=== PATIENT | male | born 1950 | race Caucasian/White ===

== ENCOUNTER 2017-05-04 09:47 | Inpatient (IN) | payer MEDICARE, OTHER ==
[~2017-05-04] VITALS: Ht 188 cm; Wt 77.1 kg
[2017-05-04 10:47] VITALS: BP 170/69
[2017-05-04] MEDS ORDERED: ACETAMINOPHEN 325 MG TABLET. PO PRN (11:30)
[2017-05-04] MEDS ORDERED: ONDANSETRON PF 4 MG/2 ML VIAL. IV PRN (11:30)
[2017-05-04] MEDS ORDERED: MORPHINE SULFATE 4 MG/ML DISP.SYRIN. IV PRN (11:30)
[2017-05-04] MEDS ORDERED: oxyCODONE IR 5 MG TABLET PO PRN (11:30)
[2017-05-04] MEDS ORDERED: KETOROLAC 15 MG/ML VIAL. IV PRN (11:30)
--- NOTE | 2017-05-04 14:39 | PDOC1 ---
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 known to Octaviano Beaulieu, I did speak with Lazarus Beaulieu earlier today and pt has been cancer free for yrs. ON CT some 8 mm liver lesion too could not say if hemangioma or mets, Pt denies changes in PO intake or weight loss PT appears non toxic and pain meds working GS has seen pt, advised nGT but he opted to wait and see He would rather avoid further sx and do conservative tx PLan of care dw too, agreeable LAbs: wbc 15 K 4.4 creat 1.0 rest of BMP ok, afebrile, VS ok Past Medical History Cardiovascular: HTN Heme/Onc: Cancer Past Surgical History Past Surgical History: Other (colon sx) Family History Family History: No Significant Social History Smoke: <1 pack per day ALCOHOL: occassional Drugs: None Current Medications Current Medications Current Medications Ondansetron HCl (Zofran) 4 mg PRN Q6HRS PRN IV NAUSEA/VOMITING; Start at 11:30 Oxycodone HCl (Roxicodone) 5 mg PRN Q3HRS PRN PO BREAKTHROUGH PAIN; Start 06/08 at 11:30 Morphine Sulfate 2 mg PRN Q2HR PRN IV PAIN Last administered on 05/04/17 12: 21; Start 05/04/17 at 11:30 Ketorolac Tromethamine (Toradol) 15 mg PRN Q6HRS PRN IV PAIN Last administered on 05/04/17 12:21; Start 05/04/17 at 11:30; Stop 05/09/17 at 11:29 Acetaminophen (Tylenol) 650 mg PRN Q6HRS PRN PO Headaches, Temp > 101.5F; Start 05/04/17 at 11:30 Potassium Chloride/Sodium Chloride 1,000 ml @ 100 mls/hr Q10H IV ; Start 05/04 at 13:15 Allergies Allergies: Coded Allergies: No Known Drug Allergies (Unverified , 05/04/17) ROS Review of System as per HPI, otherwise 14 pt negative Physical Exam General: Alert, Oriented X3, Cooperative, No acute distress HEENT: Atraumatic, PERRLA, EOMI, Mucous membr. moist/pink Lungs: Clear to auscultation, Normal air movement Heart: S1S2, RRR, no thrills, no rubs, no gallops, no murmurs Cardiovascular: S1, S2 Abdomen: Soft, Other (tympanitic, mildly tender on moderate palp, hypoactive BS , no guarding) Extremities: No clubbing, No cyanosis, No edema, Normal pulses, No tenderness/ swelling Skin: No rashes, No breakdown, No significant lesion Neuro: Normal gait, Normal speech, Strength at 5/5 X4 ext, Normal tone, Sensation intact, Cranial nerves 3-12 NL, Reflexes 2+ Psych/Mental Status: Mental status NL, Mood NL Vitals Vitals Vital Signs Date Time Temp Pulse Resp B/P (MAP) Pulse Ox O2 Delivery O2 Flow Rate FiO2 05/04/17 12:21 16 Room Air VTE Prophylaxis Ordered VTE Prophylaxis Devices: Yes VTE Pharmacological Prophylaxi: Yes Assessment/Plan Assessment/Plan 1. SBO with transition point 2. Hx colon CA stage 4? with 8 mmliver lesion, hemangiona vs met - hasbeen cancer free for yrs per Octaviano Beaulieu 3. 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 HTN, dyslipidemia, smoker, occ etoh 5.ANemia of malignancy 6. LEukocytosis, likely reactibe 7,.Mild ot mod PCM PLAN: NPO IVF GS and heme onc consults PAin meds HE would rather go conservative route and avoid any abd surgeries if possible Dw and him LAbs tmr OSMAN ESCOBEDO MD May 04, 2017 14:39
[2017-05-04 15:00] VITALS: BP 165/70
[2017-05-04] MEDS: POTASSIUM CL 20MEQ-0.45% NACL 1,000 ML IV SCH (15:51)
[2017-05-04] MEDS: ENOXAPARIN 40 MG/0.4 ML SYRINGE. SQ SCH (16:00)
[2017-05-04] MEDS ORDERED: LISI-334 PO (16:13)
[2017-05-04] MEDS ORDERED: testosterone (16:13)
[2017-05-04] MEDS ORDERED: PROAIR HFA8.5 GM INH (16:13)
[2017-05-04] MEDS ORDERED: FLUT1DIS5 IH (16:13)
[2017-05-04] MEDS ORDERED: CYAN10005 PO (16:13)
[2017-05-04] MEDS ORDERED: EZET10TA18 PO (16:13)
[2017-05-04] MEDS ORDERED: TIOT18CA IH (16:13)
[2017-05-04] MEDS ORDERED: IBUP-1060 PO (16:14)
[2017-05-04] MEDS ORDERED: MULT1TAB52 PO (16:14)
[2017-05-04] MEDS: PANTOPRAZOLE IV PUSH 40 MG VIAL. IVP SCH (18:10)
--- NOTE | 2017-05-04 18:32 | PDOC2 ---
CONSULT Date of Consult Date of Consult DATE: 05/04/17 TIME: 16:30 Reason for Consult Reason for Consult: small bowel obstruction Referring Physician Referring Physician: SANTO Identification/Chief Complaint Chief Complaint abdominal pain, nausea, vomiting Problems: Source Source: Chart review, Patient History of Present Illness Reason for Visit: Sal is a 67 yo gentleman with a hx of colon cancer who had a colonoscopy nine days ago. Since then he has not had much bowel activity, despite eating well. He developed pain, nausea and vomiting earlier today and was seen at the [facility] ED. CT done there showed a small bowel obstruction. He is admitted for further evaluation and treatment Past Medical History Cardiovascular: HTN Heme/Onc: Cancer Past Surgical History Past Surgical History: Hernia Repair, Colon Resection, Other (colon sx) Family History Family History: No Significant Social History <1 pack per day ALCOHOL: occassional Drugs: None Current Medications Current Medications Current Medications Ondansetron HCl (Zofran) 4 mg PRN Q6HRS PRN IV NAUSEA/VOMITING; Start at 11:30 Oxycodone HCl (Roxicodone) 5 mg PRN Q3HRS PRN PO BREAKTHROUGH PAIN; Start 06/08 at 11:30 Morphine Sulfate 2 mg PRN Q2HR PRN IV PAIN Last administered on 05/04/17 12: 21; Start 05/04/17 at 11:30 Ketorolac Tromethamine (Toradol) 15 mg PRN Q6HRS PRN IV PAIN Last administered on 05/04/17 12:21; Start 05/04/17 at 11:30; Stop 05/04/17 at 14:40; Status DC Acetaminophen (Tylenol) 650 mg PRN Q6HRS PRN PO Headaches, Temp > 101.5F; Start 05/04/17 at 11:30 Potassium Chloride/Sodium Chloride 1,000 ml @ 100 mls/hr Q10H IV Last administered on 05/04/17 15:51; Start 05/04/17 at 13:15 Enoxaparin Sodium (Lovenox 40mg Syringe) 40 mg Q24H SQ ; Start 05/04/17 at 16: 00 Pantoprazole Sodium (Protonix Vial) 40 mg DAILYAC IVP Last administered on 18:10; Start 05/04/17 at 15:00 Active Scripts Active Reported Multivitamins (Multivitamin) 1 Each Tablet 1 Tab PO DAILY Ibuprofen 800 Mg Tablet 800 Mg PO PRN TID PRN Vitamin B-12 (Cyanocobalamin (Vitamin B-12)) 1,000 Mcg Tablet 1 Tab PO DAILY Proair Hfa Inhaler (Albuterol Sulfate) 8.5 Gm Hfa.aer.ad 2 Puff INH PRN Q6HRS PRN Advair 500-50 Diskus (Fluticasone/Salmeterol) 1 Each Disk.w.dev 2 Inh IH BID Spiriva (Tiotropium [place]) 18 Mcg Cap.w.dev 1 Inh IH DAILY [testosterone] 4 Puff DAILY Zetia (Ezetimibe) 10 Mg Tablet 1 Tab PO DAILY Lisinopril 20 Mg Tablet 1 Tab PO DAILY Allergies Allergies: Coded Allergies: No Known Drug Allergies (Unverified , 05/04/17) ROS Gastrointestinal: Yes Nausea, Yes Vomiting, Yes Abdominal Pain Physical Exam General: Alert, Oriented X3, No acute distress HEENT: Atraumatic Lungs: Normal air movement Heart: Regular rate Abdomen: Soft, Other (mildly distended, well healed scars without appreciable hernia, minimally TTP) Skin: No rashes Psych/Mental Status: Mental status NL Vitals VITALS Vital Signs Date Time Temp Pulse Resp B/P (MAP) Pulse Ox O2 Delivery O2 Flow Rate FiO2 05/04/17 12:51 16 Room Air 05/04/17 10:47 97.5 79 170/69 (102) [address] done earlier today at [facility] is reviewed Assessment/Plan Assessment/Plan SBO hx colon cancer, recent colonoscopy gut rest, IV fluids, observation will check plain film in the AM to assess progress of oral contrast given for the CT earlier today will follow Thanks for consult RUSH DE SOUZA MD May 04, 2017 18:32
[2017-05-04] MEDS ORDERED: NON FORMULARY ITEM (Albuterol Sulfate (Proair Hfa Inhaler) 2 PUFF) INH PRN (18:45)
[2017-05-04] MEDS ORDERED: ALBUTEROL SULFATE 2.5 MG/3 ML NEBU. NEB PRN (18:45)
[2017-05-04 19:00] VITALS: BP 128/58
[2017-05-04] MEDS: IPRATRPIUM/ALBUTEROL 0.5/2.5MG 3 ML NEBU. NEB SCH (20:31)
[2017-05-04] MEDS: BUDESONIDE 0.5 MG/2 ML NEBU. NEB SCH (20:31)
[2017-05-04] MEDS ORDERED: NON FORMULARY ITEM (Fluticasone/Salmeterol (Advair 500-50 Diskus) 2 INH) IH SCH (21:00)
[2017-05-04 23:00] VITALS: BP 135/63
[2017-05-05] MEDS: POTASSIUM CL 20MEQ-0.45% NACL 1,000 ML IV SCH ×3 (00:34→21:18)
[2017-05-05 03:00] VITALS: BP 131/62
[2017-05-05 05:00] LABS: BASO % 0 % (0-3); EOS % 1 % (0-3); HEMATOCRIT 41.7 % (39.0-53.0); HEMOGLOBIN 14.1 g/dL (13.0-17.5); LYMPH # 0.7 x10^3/uL (1.0-4.8); LYMPH % 11 % (24-48); MEAN CORPUSCULAR HEMOGLOBIN 34 pg (25-35); MEAN CORPUSCULAR HGB CONC 34 g/dL (31-37); MEAN CORPUSCULAR VOLUME 101 fL (79-100); MONO % 10 % (0-9); NEUT % 78 % (31-73); PLATELET COUNT 212 x10^3/uL (140-400); RED BLOOD COUNT 4.13 x10^6/uL (4.30-5.70); RED CELL DISTRIBUTION WIDTH 13.2 % (11.5-14.5); WHITE BLOOD COUNT 6.9 x10^3/uL (4.0-11.0)
[2017-05-05 05:22] LABS: INR 1.1 (0.8-1.1); PROTHROMBIN TIME PATIENT 13.9 SEC (11.7-14.0)
[2017-05-05 07:00] VITALS: BP 134/68
[2017-05-05] MEDS: BUDESONIDE 0.5 MG/2 ML NEBU. NEB SCH ×2 (07:13→19:55)
[2017-05-05] MEDS: IPRATRPIUM/ALBUTEROL 0.5/2.5MG 3 ML NEBU. NEB SCH ×4 (07:13→19:55)
[2017-05-05] MEDS ORDERED: TESTOSTERONE SCH (09:00)
[2017-05-05] MEDS ORDERED: NON FORMULARY ITEM (Tiotropium Bromide (Spiriva) 1 INH) IH SCH (09:00)
[2017-05-05 09:24] LABS: ALBUMIN 3.4 g/dL (3.4-5.0); ALBUMIN/GLOBULIN RATIO 1.2 (1.0-1.7); CALCIUM 8.7 mg/dL (8.5-10.1); GFR 74.5; POTASSIUM 4.8 mmol/L (3.5-5.1); TOTAL BILIRUBIN 0.8 mg/dL (0.2-1.0); TOTAL PROTEIN 6.2 g/dL (6.4-8.2)
[2017-05-05] MEDS: PANTOPRAZOLE IV PUSH 40 MG VIAL. IVP SCH (10:52)
--- NOTE | 2017-05-05 10:58 | RAD ---
Abdomen, 2 views, 05/05/2017: History: Follow-up small bowel obstruction There is a moderate amount of stool in the colon. There is mild gaseous distention of small bowel loops in the central abdomen with several associated air-fluid levels. The findings are compatible with ongoing partial small bowel obstruction. No free air is seen in the abdomen. There is no evidence of organomegaly. Scattered arterial calcifications are present. Moderate degenerative change is evident in the spine. IMPRESSION: 1. Mildly dilated mid abdominal small bowel loops compatible with partial obstruction. 2. Increased stool in the colon.
[2017-05-05 11:00] VITALS: BP 135/64
--- NOTE | 2017-05-05 14:11 | PDOC ---
PROGRESS NOTES Chief Complaint Chief Complaint 1. SBO with transition point 2. Hx colon CA stage 4? with 8 mmliver lesion, hemangiona vs met - hasbeen cancer free for yrs per Octaviano Beaulieu, recent colonoscopy neg 3. 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 HTN, dyslipidemia, smoker, occ etoh 5.ANemia of malignancy 6. LEukocytosis, likely reactibe 7,.Mild ot mod PCM plan: AXR showed partial sbo npo for now ivf start clear liquid diet if ok with sx AXR tmr dvt, gi ppx History of Present Illness History of Present Illness ROS: NO FEVER, chills, sob or chest pain has flatus, BM today abd pain much better, only mild intermittent no N/V Vitals Vitals Vital Signs Date Time Temp Pulse Resp B/P (MAP) Pulse Ox O2 Delivery O2 Flow Rate FiO2 05/05/17 11:42 Room Air 05/05/17 11:31 96 05/05/17 11:00 97.7 73 18 135/64 (87) 97.7 Physical Exam General: Alert, Oriented X3, No acute distress Heart: Regular rate, Normal S1, Normal S2 Lungs: Clear Abdomen: Normal bowel sounds, Soft, Other (mildly distended, well healed scars without appreciable hernia, no tenderness) Extremities: No clubbing, No cyanosis, No edema, Normal pulses, No tenderness/ swelling Skin: No rashes Labs LABS Laboratory Tests Test 05/05/17 04:19 05/05/17 06:00 White Blood Count 6.9 x10^3/uL (4.0-11.0) Red Blood Count 4.13 x10^6/uL (4.30-5.70) Hemoglobin 14.1 g/dL (13.0-17.5) Hematocrit 41.7 % (39.0-53.0) Mean Corpuscular Volume 101 fL (79-100) Mean Corpuscular Hemoglobin 34 pg (25-35) Mean Corpuscular Hemoglobin Concent 34 g/dL (31-37) Red Cell Distribution Width 13.2 % (11.5-14.5) Platelet Count 212 x10^3/uL (140-400) Neutrophils (%) (Auto) 78 % (31-73) Lymphocytes (%) (Auto) 11 % (24-48) Monocytes (%) (Auto) 10 % (0-9) Eosinophils (%) (Auto) 1 % (0-3) Basophils (%) (Auto) 0 % (0-3) Neutrophils # (Auto) 5.4 x10^3uL (1.8-7.7) Lymphocytes # (Auto) 0.7 x10^3/uL (1.0-4.8) Monocytes # (Auto) 0.7 x10^3/uL (0.0-1.1) Eosinophils # (Auto) 0.1 x10^3/uL (0.0-0.7) Basophils # (Auto) 0.0 x10^3/uL (0.0-0.2) Prothrombin Time 13.9 SEC (11.7-14.0) Prothromb Time International Ratio 1.1 (0.8-1.1) Sodium Level 142 mmol/L (136-145) Potassium Level 4.8 mmol/L (3.5-5.1) Chloride Level 107 mmol/L (98-107) Carbon Dioxide Level 26 mmol/L (21-32) Anion Gap 9 (6-14) Blood Urea Nitrogen 16 mg/dL (8-26) Creatinine 1.0 mg/dL (0.7-1.3) Estimated GFR (Cockcroft-Gault) 74.5 BUN/Creatinine Ratio 16 (6-20) Glucose Level 79 mg/dL (70-99) Calcium Level 8.7 mg/dL (8.5-10.1) Total Bilirubin 0.8 mg/dL (0.2-1.0) Aspartate Amino Transf (AST/SGOT) 18 U/L (15-37) Alanine Aminotransferase (ALT/SGPT) 20 U/L (16-63) Alkaline Phosphatase 51 U/L (46-116) Total Protein 6.2 g/dL (6.4-8.2) Albumin 3.4 g/dL (3.4-5.0) Albumin/Globulin Ratio 1.2 (1.0-1.7) Comment Review of Relevant I have reviewed the following items yanely (where applicable) has been applied. Labs Laboratory Tests Test 05/05/17 04:19 05/05/17 06:00 White Blood Count 6.9 x10^3/uL (4.0-11.0) Red Blood Count 4.13 x10^6/uL (4.30-5.70) Hemoglobin 14.1 g/dL (13.0-17.5) Hematocrit 41.7 % (39.0-53.0) Mean Corpuscular Volume 101 fL (79-100) Mean Corpuscular Hemoglobin 34 pg (25-35) Mean Corpuscular Hemoglobin Concent 34 g/dL (31-37) Red Cell Distribution Width 13.2 % (11.5-14.5) Platelet Count 212 x10^3/uL (140-400) Neutrophils (%) (Auto) 78 % (31-73) Lymphocytes (%) (Auto) 11 % (24-48) Monocytes (%) (Auto) 10 % (0-9) Eosinophils (%) (Auto) 1 % (0-3) Basophils (%) (Auto) 0 % (0-3) Neutrophils # (Auto) 5.4 x10^3uL (1.8-7.7) Lymphocytes # (Auto) 0.7 x10^3/uL (1.0-4.8) Monocytes # (Auto) 0.7 x10^3/uL (0.0-1.1) Eosinophils # (Auto) 0.1 x10^3/uL (0.0-0.7) Basophils # (Auto) 0.0 x10^3/uL (0.0-0.2) Prothrombin Time 13.9 SEC (11.7-14.0) Prothromb Time International Ratio 1.1 (0.8-1.1) Sodium Level 142 mmol/L (136-145) Potassium Level 4.8 mmol/L (3.5-5.1) Chloride Level 107 mmol/L (98-107) Carbon Dioxide Level 26 mmol/L (21-32) Anion Gap 9 (6-14) Blood Urea Nitrogen 16 mg/dL (8-26) Creatinine 1.0 mg/dL (0.7-1.3) Estimated GFR (Cockcroft-Gault) 74.5 BUN/Creatinine Ratio 16 (6-20) Glucose Level 79 mg/dL (70-99) Calcium Level 8.7 mg/dL (8.5-10.1) Total Bilirubin 0.8 mg/dL (0.2-1.0) Aspartate Amino Transf (AST/SGOT) 18 U/L (15-37) Alanine Aminotransferase (ALT/SGPT) 20 U/L (16-63) Alkaline Phosphatase 51 U/L (46-116) Total Protein 6.2 g/dL (6.4-8.2) Albumin 3.4 g/dL (3.4-5.0) Albumin/Globulin Ratio 1.2 (1.0-1.7) Laboratory Tests Test 05/05/17 04:19 05/05/17 06:00 White Blood Count 6.9 x10^3/uL (4.0-11.0) Red Blood Count 4.13 x10^6/uL (4.30-5.70) Hemoglobin 14.1 g/dL (13.0-17.5) Hematocrit 41.7 % (39.0-53.0) Mean Corpuscular Volume 101 fL (79-100) Mean Corpuscular Hemoglobin 34 pg (25-35) Mean Corpuscular Hemoglobin Concent 34 g/dL (31-37) Red Cell Distribution Width 13.2 % (11.5-14.5) Platelet Count 212 x10^3/uL (140-400) Neutrophils (%) (Auto) 78 % (31-73) Lymphocytes (%) (Auto) 11 % (24-48) Monocytes (%) (Auto) 10 % (0-9) Eosinophils (%) (Auto) 1 % (0-3) Basophils (%) (Auto) 0 % (0-3) Neutrophils # (Auto) 5.4 x10^3uL (1.8-7.7) Lymphocytes # (Auto) 0.7 x10^3/uL (1.0-4.8) Monocytes # (Auto) 0.7 x10^3/uL (0.0-1.1) Eosinophils # (Auto) 0.1 x10^3/uL (0.0-0.7) Basophils # (Auto) 0.0 x10^3/uL (0.0-0.2) Prothrombin Time 13.9 SEC (11.7-14.0) Prothromb Time International Ratio 1.1 (0.8-1.1) Sodium Level 142 mmol/L (136-145) Potassium Level 4.8 mmol/L (3.5-5.1) Chloride Level 107 mmol/L (98-107) Carbon Dioxide Level 26 mmol/L (21-32) Anion Gap 9 (6-14) Blood Urea Nitrogen 16 mg/dL (8-26) Creatinine 1.0 mg/dL (0.7-1.3) Estimated GFR (Cockcroft-Gault) 74.5 BUN/Creatinine Ratio 16 (6-20) Glucose Level 79 mg/dL (70-99) Calcium Level 8.7 mg/dL (8.5-10.1) Total Bilirubin 0.8 mg/dL (0.2-1.0) Aspartate Amino Transf (AST/SGOT) 18 U/L (15-37) Alanine Aminotransferase (ALT/SGPT) 20 U/L (16-63) Alkaline Phosphatase 51 U/L (46-116) Total Protein 6.2 g/dL (6.4-8.2) Albumin 3.4 g/dL (3.4-5.0) Albumin/Globulin Ratio 1.2 (1.0-1.7) Medications Current Medications Ondansetron HCl (Zofran) 4 mg PRN Q6HRS PRN IV NAUSEA/VOMITING; Start at 11:30 Oxycodone HCl (Roxicodone) 5 mg PRN Q3HRS PRN PO BREAKTHROUGH PAIN; Start 06/08 at 11:30 Morphine Sulfate 2 mg PRN Q2HR PRN IV PAIN Last administered on 05/04/17 12: 21; Start 05/04/17 at 11:30 Ketorolac Tromethamine (Toradol) 15 mg PRN Q6HRS PRN IV PAIN Last administered on 05/04/17 12:21; Start 05/04/17 at 11:30; Stop 05/04/17 at 14:40; Status DC Acetaminophen (Tylenol) 650 mg PRN Q6HRS PRN PO Headaches, Temp > 101.5F; Start 05/04/17 at 11:30 Potassium Chloride/Sodium Chloride 1,000 ml @ 100 mls/hr Q10H IV Last administered on 05/05/17 10:51; Start 05/04/17 at 13:15 Enoxaparin Sodium (Lovenox 40mg Syringe) 40 mg Q24H SQ ; Start 05/04/17 at 16: 00 Pantoprazole Sodium (Protonix Vial) 40 mg DAILYAC IVP Last administered on 10:52; Start 05/04/17 at 15:00 Non-Formulary Medication 2 puff PRN Q6HRS PRN INH SHORTNESS OF BREATH; Start 05/04/17 at 18:45; Status UNV Non-Formulary Medication 2 inh BID IH ; Start 05/04/17 at 21:00; Status UNV Non-Formulary Medication 1 inh DAILY IH ; Start 05/05/17 at 09:00; Status UNV Non-Formulary Medication 4 puff DAILY .ROUTE ; Start 05/05/17 at 09:00; Status UNV Albuterol Sulfate (Ventolin Neb Soln) 2.5 mg PRN Q6HRS PRN NEB SHORTNESS OF BREATH; Start 05/04/17 at 18:45 Albuterol/ Ipratropium (Duoneb) 3 ml RTQID NEB Last administered on 05/05/17 11:28; Start 05/04/17 at 20:00 Budesonide (Pulmicort) 0.5 mg RTBID NEB Last administered on 05/05/17 07:13; Start 05/04/17 at 20:00 Active Scripts Active Reported Multivitamins (Multivitamin) 1 Each Tablet 1 Tab PO DAILY Ibuprofen 800 Mg Tablet 800 Mg PO PRN TID PRN Vitamin B-12 (Cyanocobalamin (Vitamin B-12)) 1,000 Mcg Tablet 1 Tab PO DAILY Proair Hfa Inhaler (Albuterol Sulfate) 8.5 Gm Hfa.aer.ad 2 Puff INH PRN Q6HRS PRN Advair 500-50 Diskus (Fluticasone/Salmeterol) 1 Each Disk.w.dev 2 Inh IH BID Spiriva (Tiotropium [place]) 18 Mcg Cap.w.dev 1 Inh IH DAILY [testosterone] 4 Puff DAILY Zetia (Ezetimibe) 10 Mg Tablet 1 Tab PO DAILY Lisinopril 20 Mg Tablet 1 Tab PO DAILY Vitals/I & O Vital Sign - Last 24 Hours 05/04/17 05/04/17 05/04/17 05/04/17 15:00 19:00 19:50 20:33 Temp 97.6 97.9 97.6 97.9 Pulse 86 74 Resp 18 18 B/P (MAP) 165/70 (101) 128/58 (81) Pulse Ox 96 93 98 O2 Delivery Room Air Room Air Room Air Room Air 05/04/17 05/05/17 05/05/17 05/05/17 23:00 03:00 07:00 07:15 Temp 98.1 97.9 98.3 98.1 97.9 98.3 Pulse 79 70 67 Resp 16 16 18 B/P (MAP) 135/63 (87) 131/62 (85) 134/68 (90) Pulse Ox 94 93 93 96 O2 Delivery Room Air Room Air Room Air Room Air 05/05/17 05/05/17 05/05/17 11:00 11:31 11:42 Temp 97.7 97.7 Pulse 73 Resp 18 B/P (MAP) 135/64 (87) Pulse Ox 95 96 O2 Delivery Room Air Room Air Room Air Intake and Output 05/04/17 05/04/17 05/05/17 14:59 22:59 06:59 Intake Total 0 ml 0 ml 1400 ml Output Total 0 ml Balance 0 ml 0 ml 1400 ml TREVER JIMENEZ MD May 05, 2017 14:11
[2017-05-05 15:00] VITALS: BP 116/56
[2017-05-05] MEDS: ENOXAPARIN 40 MG/0.4 ML SYRINGE. SQ SCH (16:00)
--- NOTE | 2017-05-05 16:19 | PDOC ---
Provider Note Provider Note SURG Arian for Chaparro no further emesis, has had some small bowel movements plain films reviewed SBO continue present care NG if vomits RUSH DE SOUZA MD May 05, 2017 16:19
--- NOTE | 2017-05-05 17:59 | CONS ---
DATE OF CONSULTATION: 05/05/2017 MEDICAL ONCOLOGY CONSULTATION REPORT REQUESTING PHYSICIAN: Dr. Asia Seth. REASON FOR CONSULTATION: Rectal cancer and history of head and neck cancer, now admitted with small-bowel obstruction. HISTORY OF PRESENT ILLNESS: The patient is a 67-year-old gentleman who was diagnosed with rectal cancer in December 2008. He was a clinical stage 2, but pathologic stage 1 and he completed adjuvant chemotherapy. He is up-to-date with colonoscopy and the last one was done in September 2013. He was last seen by Dr. Jose Brumfield, his primary oncologist on 02/20/2017 and he did not have any evidence of recurrent disease. He also has a history of head and neck cancer in 2010 with unknown primary, but p16 positive. He underwent neck dissection and 3 lymph nodes were involved and he received combined modality chemoradiation therapy with cisplatin beginning February of 2011 and he completed all his treatments successfully. 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 He has had followup scans done, which did not reveal any evidence of recurrence. He also had CT scans for pulmonary nodules with the most recent one on 12/04/2016 at [facility], which showed a 4 mm left upper lobe nodule and is has not changed for a while. He was admitted to [facility] on 05/04/2017 with nausea, vomiting, abdominal distention and abdominal pain. He underwent CT scan of the abdomen and pelvis on 05/04/2017 at [facility] and this revealed evidence of small-bowel obstruction. There is a transition point to decompressed small bowel within the right lower quadrant. Right nephrolithiasis was also noted. Small hypodense lesions in the liver with the largest measuring 8 mm. This is too small to characterize. The differential diagnosis includes cysts, hemangiomas or liver metastasis. Small hiatal hernia is also noted. He has had a colonoscopy by Dr. Avtar Chaparro on 04/25/2017 that did not reveal any evidence of malignancy. The colonoscopy was completely normal. I was asked to see the patient because of his history of rectal cancer. PAST MEDICAL HISTORY: Hypertension, rectal cancer, and head and neck cancer. FAMILY HISTORY: No history of colon cancer in the family. SOCIAL HISTORY: He never smoked cigarettes. REVIEW OF SYSTEMS: A 12-point review of system was performed. Pertinent positives are mentioned in the history of present illness. Rest of the system review is negative. PHYSICAL EXAMINATION: GENERAL APPEARANCE: The patient is a 67-year-old gentleman who is in no acute cardiorespiratory distress. VITAL SIGNS: Blood pressure 135/64, temperature 97.7. HEENT: Head: Atraumatic, normocephalic. Eyes: No icterus. NECK: Supple. CHEST: Bilaterally symmetrical. No crepitations or rhonchi heard. HEART: S1, S2 normal. ABDOMEN: Soft, distended, mild tenderness. MUSCULOSKELETAL: No joint effusions. PSYCHOLOGIC: Mood and affect are appropriate. CENTRAL NERVOUS SYSTEM: No focal deficits. LYMPHATICS: No lymphadenopathy. LABORATORY DATA: WBC 6.9, hemoglobin 14.1, platelet count 212. Creatinine 1, calcium 8.7, total bilirubin 0.8, AST 18, ALT 20, alkaline phosphatase 51. IMPRESSION AND PLAN: 1. Rectal cancer diagnosed in 2008. He has had a colonoscopy on 04/25/[address] Avtar Chaparro and it did not reveal any evidence of recurrence. CT scan of the abdomen and pelvis on 05/04/2017 revealed small-bowel obstruction and indeterminate lesions in the liver, which are 8 mm on the left, which are nonspecific. Hence, there is no clinical evidence of recurrent disease. I will obtain a CEA level. I also recommended a followup CT scan in about 3 months to evaluate his liver lesions. If they get bigger, he may need a biopsy. He will follow up with Dr. Jose Brumfield for further management. 2. Head and neck cancer in 2010, no clinical evidence of recurrence. 3. Small-bowel obstruction. Appreciate consultation by Surgery. Dr. Don has seen the patient and recommended bowel rest, IV fluids, and observation. A followup abdominal x-ray was performed on 05/05/2017, which revealed mildly dilated mid abdominal small bowel loops compatible with partial obstruction. YAZ BELL MD DR: PASTOR/philippe JOB#: [id number] / [id number] Dr. Jose Valera
[2017-05-05 19:15] VITALS: BP 138/72
[2017-05-05 23:26] VITALS: BP 150/66
[2017-05-06 02:47] VITALS: BP 157/73
[2017-05-06 05:00] LABS: BASO % 0 % (0-3); EOS % 1 % (0-3); HEMATOCRIT 37.9 % (39.0-53.0); HEMOGLOBIN 12.8 g/dL (13.0-17.5); LYMPH % 17 % (24-48); MEAN CORPUSCULAR HEMOGLOBIN 34 pg (25-35); MEAN CORPUSCULAR HGB CONC 34 g/dL (31-37); MEAN CORPUSCULAR VOLUME 101 fL (79-100); MONO % 13 % (0-9); NEUT % 69 % (31-73); PLATELET COUNT 203 x10^3/uL (140-400); RED BLOOD COUNT 3.75 x10^6/uL (4.30-5.70); RED CELL DISTRIBUTION WIDTH 13.3 % (11.5-14.5)
[2017-05-06 05:34] LABS: CALCIUM 8.5 mg/dL (8.5-10.1); CREATININE 0.9 mg/dL (0.7-1.3); GFR 84.2; POTASSIUM 4.1 mmol/L (3.5-5.1)
[2017-05-06] MEDS: POTASSIUM CL 20MEQ-0.45% NACL 1,000 ML IV SCH ×3 (06:29→21:50)
[2017-05-06 07:00] VITALS: BP 145/67
[2017-05-06] MEDS: BUDESONIDE 0.5 MG/2 ML NEBU. NEB SCH ×2 (08:18→19:24)
[2017-05-06] MEDS: IPRATRPIUM/ALBUTEROL 0.5/2.5MG 3 ML NEBU. NEB SCH ×4 (08:18→19:24)
[2017-05-06] MEDS: PANTOPRAZOLE IV PUSH 40 MG VIAL. IVP SCH (09:13)
--- NOTE | 2017-05-06 10:01 | RAD ---
2 views of the abdomen 05/06/2017 Indication: Small bowel obstruction Comparison study: Radiographs, yesterday Findings: Mild dilatation of small bowel with multiple air-fluid levels remain present throughout the abdomen. Some gas is present in the distal large bowel. Findings raise concern for partial small bowel obstruction, versus adynamic ileus. No gross evidence of pneumoperitoneum is identified though exam is limited for this purpose. Amount of colonic stool appears somewhat decreased in the interim. No acute osseous changes are identified. Surgical anastomosis is noted in the expected region of the distal rectum. Impression: Persistent findings of possible small partial small bowel obstruction versus adynamic ileus.
[2017-05-06 10:54] VITALS: BP 142/72
--- NOTE | 2017-05-06 13:35 | PDOC ---
SURGICAL PROGRESS NOTE Subjective small stool, small flatus NO emesis some crapping pains at times Vital Signs Vital Signs Date Time Temp Pulse Resp B/P (MAP) Pulse Ox O2 Delivery O2 Flow Rate FiO2 05/06/17 13:00 Room Air 05/06/17 10:54 98.0 70 16 142/72 (95) 97 98.0 05/05/17 23:26 2.0 I&O Intake and Output 05/06/17 07:00 Intake Total 2146 ml Output Total 0 ml Balance 2146 ml Intake Oral 0 ml IV Total 2146 ml Stool Total 0 ml # Voids 3 # Bowel Movements 2 General: Alert, Oriented X3, Cooperative, No acute distress Abdomen: Soft, No tenderness Labs Laboratory Tests Test 05/05/17 04:19 05/05/17 06:00 05/06/17 03:40 White Blood Count 6.9 x10^3/uL (4.0-11.0) 6.0 x10^3/uL (4.0-11.0) Red Blood Count 4.13 x10^6/uL (4.30-5.70) 3.75 x10^6/uL (4.30-5.70) Hemoglobin 14.1 g/dL (13.0-17.5) 12.8 g/dL (13.0-17.5) Hematocrit 41.7 % (39.0-53.0) 37.9 % (39.0-53.0) Mean Corpuscular Volume 101 fL (79-100) 101 fL (79-100) Mean Corpuscular Hemoglobin 34 pg (25-35) 34 pg (25-35) Mean Corpuscular Hemoglobin Concent 34 g/dL (31-37) 34 g/dL (31-37) Red Cell Distribution Width 13.2 % (11.5-14.5) 13.3 % (11.5-14.5) Platelet Count 212 x10^3/uL (140-400) 203 x10^3/uL (140-400) Neutrophils (%) (Auto) 78 % (31-73) 69 % (31-73) Lymphocytes (%) (Auto) 11 % (24-48) 17 % (24-48) Monocytes (%) (Auto) 10 % (0-9) 13 % (0-9) Eosinophils (%) (Auto) 1 % (0-3) 1 % (0-3) Basophils (%) (Auto) 0 % (0-3) 0 % (0-3) Neutrophils # (Auto) 5.4 x10^3uL (1.8-7.7) 4.1 x10^3uL (1.8-7.7) Lymphocytes # (Auto) 0.7 x10^3/uL (1.0-4.8) 1.0 x10^3/uL (1.0-4.8) Monocytes # (Auto) 0.7 x10^3/uL (0.0-1.1) 0.8 x10^3/uL (0.0-1.1) Eosinophils # (Auto) 0.1 x10^3/uL (0.0-0.7) 0.1 x10^3/uL (0.0-0.7) Basophils # (Auto) 0.0 x10^3/uL (0.0-0.2) 0.0 x10^3/uL (0.0-0.2) Prothrombin Time 13.9 SEC (11.7-14.0) Prothromb Time International Ratio 1.1 (0.8-1.1) Sodium Level 142 mmol/L (136-145) 141 mmol/L (136-145) Potassium Level 4.8 mmol/L (3.5-5.1) 4.1 mmol/L (3.5-5.1) Chloride Level 107 mmol/L (98-107) 105 mmol/L (98-107) Carbon Dioxide Level 26 mmol/L (21-32) 25 mmol/L (21-32) Anion Gap 9 (6-14) 11 (6-14) Blood Urea Nitrogen 16 mg/dL (8-26) 12 mg/dL (8-26) Creatinine 1.0 mg/dL (0.7-1.3) 0.9 mg/dL (0.7-1.3) Estimated GFR (Cockcroft-Gault) 74.5 84.2 BUN/Creatinine Ratio 16 (6-20) Glucose Level 79 mg/dL (70-99) 79 mg/dL (70-99) Calcium Level 8.7 mg/dL (8.5-10.1) 8.5 mg/dL (8.5-10.1) Total Bilirubin 0.8 mg/dL (0.2-1.0) Aspartate Amino Transf (AST/SGOT) 18 U/L (15-37) Alanine Aminotransferase (ALT/SGPT) 20 U/L (16-63) Alkaline Phosphatase 51 U/L (46-116) Total Protein 6.2 g/dL (6.4-8.2) Albumin 3.4 g/dL (3.4-5.0) Albumin/Globulin Ratio 1.2 (1.0-1.7) Laboratory Tests Test 05/06/17 03:40 White Blood Count 6.0 x10^3/uL (4.0-11.0) Red Blood Count 3.75 x10^6/uL (4.30-5.70) Hemoglobin 12.8 g/dL (13.0-17.5) Hematocrit 37.9 % (39.0-53.0) Mean Corpuscular Volume 101 fL (79-100) Mean Corpuscular Hemoglobin 34 pg (25-35) Mean Corpuscular Hemoglobin Concent 34 g/dL (31-37) Red Cell Distribution Width 13.3 % (11.5-14.5) Platelet Count 203 x10^3/uL (140-400) Neutrophils (%) (Auto) 69 % (31-73) Lymphocytes (%) (Auto) 17 % (24-48) Monocytes (%) (Auto) 13 % (0-9) Eosinophils (%) (Auto) 1 % (0-3) Basophils (%) (Auto) 0 % (0-3) Neutrophils # (Auto) 4.1 x10^3uL (1.8-7.7) Lymphocytes # (Auto) 1.0 x10^3/uL (1.0-4.8) Monocytes # (Auto) 0.8 x10^3/uL (0.0-1.1) Eosinophils # (Auto) 0.1 x10^3/uL (0.0-0.7) Basophils # (Auto) 0.0 x10^3/uL (0.0-0.2) Sodium Level 141 mmol/L (136-145) Potassium Level 4.1 mmol/L (3.5-5.1) Chloride Level 105 mmol/L (98-107) Carbon Dioxide Level 25 mmol/L (21-32) Anion Gap 11 (6-14) Blood Urea Nitrogen 12 mg/dL (8-26) Creatinine 0.9 mg/dL (0.7-1.3) Estimated GFR (Cockcroft-Gault) 84.2 Glucose Level 79 mg/dL (70-99) Calcium Level 8.5 mg/dL (8.5-10.1) Problem List sbo vs ileus will order SBFT with GG to further eval Problems: NIELS GARCÍA HEARING SPECIALIST May 06, 2017 13:35
[2017-05-06] MEDS ORDERED: IOHEXOL 300 MG/ML 100ML VIAL. PO ONE (14:00)
[2017-05-06] MEDS ORDERED: CONTRAST GIVEN MC PRN (14:00)
--- NOTE | 2017-05-06 14:50 | PDOC ---
PROGRESS NOTES Chief Complaint Chief Complaint 1. SBO with transition point 2. Hx colon CA stage 4? with 8 mmliver lesion, hemangiona vs met - hasbeen cancer free for yrs per [facility], recent colonoscopy neg 3. 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 HTN, dyslipidemia, smoker, occ etoh 5.ANemia of malignancy 6. LEukocytosis, likely reactibe 7,.Mild ot mod PCM plan: AXR showed partial sbo npo for now ivf Small bowel series as per sx dvt, gi ppx History of Present Illness History of Present Illness ROS: NO FEVER, chills, sob or chest pain has flatus, BM yesterday no abd pain today no N/V AXR SHOWED partial sbo Vitals Vitals Vital Signs Date Time Temp Pulse Resp B/P (MAP) Pulse Ox O2 Delivery O2 Flow Rate FiO2 05/06/17 13:00 Room Air 05/06/17 10:54 98.0 70 16 142/72 (95) 97 98.0 05/05/17 23:26 2.0 Physical Exam General: Alert, Oriented X3, Cooperative, No acute distress Heart: Regular rate, Normal S1, Normal S2 Lungs: Clear Abdomen: Soft, No tenderness Extremities: No clubbing, No cyanosis, No edema, Normal pulses, No tenderness/ swelling Skin: No rashes Labs LABS Laboratory Tests Test 05/06/17 03:40 White Blood Count 6.0 x10^3/uL (4.0-11.0) Red Blood Count 3.75 x10^6/uL (4.30-5.70) Hemoglobin 12.8 g/dL (13.0-17.5) Hematocrit 37.9 % (39.0-53.0) Mean Corpuscular Volume 101 fL (79-100) Mean Corpuscular Hemoglobin 34 pg (25-35) Mean Corpuscular Hemoglobin Concent 34 g/dL (31-37) Red Cell Distribution Width 13.3 % (11.5-14.5) Platelet Count 203 x10^3/uL (140-400) Neutrophils (%) (Auto) 69 % (31-73) Lymphocytes (%) (Auto) 17 % (24-48) Monocytes (%) (Auto) 13 % (0-9) Eosinophils (%) (Auto) 1 % (0-3) Basophils (%) (Auto) 0 % (0-3) Neutrophils # (Auto) 4.1 x10^3uL (1.8-7.7) Lymphocytes # (Auto) 1.0 x10^3/uL (1.0-4.8) Monocytes # (Auto) 0.8 x10^3/uL (0.0-1.1) Eosinophils # (Auto) 0.1 x10^3/uL (0.0-0.7) Basophils # (Auto) 0.0 x10^3/uL (0.0-0.2) Sodium Level 141 mmol/L (136-145) Potassium Level 4.1 mmol/L (3.5-5.1) Chloride Level 105 mmol/L (98-107) Carbon Dioxide Level 25 mmol/L (21-32) Anion Gap 11 (6-14) Blood Urea Nitrogen 12 mg/dL (8-26) Creatinine 0.9 mg/dL (0.7-1.3) Estimated GFR (Cockcroft-Gault) 84.2 Glucose Level 79 mg/dL (70-99) Calcium Level 8.5 mg/dL (8.5-10.1) Comment Review of Relevant I have reviewed the following items yanely (where applicable) has been applied. Labs Laboratory Tests Test 05/05/17 04:19 05/05/17 06:00 05/06/17 03:40 White Blood Count 6.9 x10^3/uL (4.0-11.0) 6.0 x10^3/uL (4.0-11.0) Red Blood Count 4.13 x10^6/uL (4.30-5.70) 3.75 x10^6/uL (4.30-5.70) Hemoglobin 14.1 g/dL (13.0-17.5) 12.8 g/dL (13.0-17.5) Hematocrit 41.7 % (39.0-53.0) 37.9 % (39.0-53.0) Mean Corpuscular Volume 101 fL (79-100) 101 fL (79-100) Mean Corpuscular Hemoglobin 34 pg (25-35) 34 pg (25-35) Mean Corpuscular Hemoglobin Concent 34 g/dL (31-37) 34 g/dL (31-37) Red Cell Distribution Width 13.2 % (11.5-14.5) 13.3 % (11.5-14.5) Platelet Count 212 x10^3/uL (140-400) 203 x10^3/uL (140-400) Neutrophils (%) (Auto) 78 % (31-73) 69 % (31-73) Lymphocytes (%) (Auto) 11 % (24-48) 17 % (24-48) Monocytes (%) (Auto) 10 % (0-9) 13 % (0-9) Eosinophils (%) (Auto) 1 % (0-3) 1 % (0-3) Basophils (%) (Auto) 0 % (0-3) 0 % (0-3) Neutrophils # (Auto) 5.4 x10^3uL (1.8-7.7) 4.1 x10^3uL (1.8-7.7) Lymphocytes # (Auto) 0.7 x10^3/uL (1.0-4.8) 1.0 x10^3/uL (1.0-4.8) Monocytes # (Auto) 0.7 x10^3/uL (0.0-1.1) 0.8 x10^3/uL (0.0-1.1) Eosinophils # (Auto) 0.1 x10^3/uL (0.0-0.7) 0.1 x10^3/uL (0.0-0.7) Basophils # (Auto) 0.0 x10^3/uL (0.0-0.2) 0.0 x10^3/uL (0.0-0.2) Prothrombin Time 13.9 SEC (11.7-14.0) Prothromb Time International Ratio 1.1 (0.8-1.1) Sodium Level 142 mmol/L (136-145) 141 mmol/L (136-145) Potassium Level 4.8 mmol/L (3.5-5.1) 4.1 mmol/L (3.5-5.1) Chloride Level 107 mmol/L (98-107) 105 mmol/L (98-107) Carbon Dioxide Level 26 mmol/L (21-32) 25 mmol/L (21-32) Anion Gap 9 (6-14) 11 (6-14) Blood Urea Nitrogen 16 mg/dL (8-26) 12 mg/dL (8-26) Creatinine 1.0 mg/dL (0.7-1.3) 0.9 mg/dL (0.7-1.3) Estimated GFR (Cockcroft-Gault) 74.5 84.2 BUN/Creatinine Ratio 16 (6-20) Glucose Level 79 mg/dL (70-99) 79 mg/dL (70-99) Calcium Level 8.7 mg/dL (8.5-10.1) 8.5 mg/dL (8.5-10.1) Total Bilirubin 0.8 mg/dL (0.2-1.0) Aspartate Amino Transf (AST/SGOT) 18 U/L (15-37) Alanine Aminotransferase (ALT/SGPT) 20 U/L (16-63) Alkaline Phosphatase 51 U/L (46-116) Total Protein 6.2 g/dL (6.4-8.2) Albumin 3.4 g/dL (3.4-5.0) Albumin/Globulin Ratio 1.2 (1.0-1.7) Laboratory Tests Test 05/06/17 03:40 White Blood Count 6.0 x10^3/uL (4.0-11.0) Red Blood Count 3.75 x10^6/uL (4.30-5.70) Hemoglobin 12.8 g/dL (13.0-17.5) Hematocrit 37.9 % (39.0-53.0) Mean Corpuscular Volume 101 fL (79-100) Mean Corpuscular Hemoglobin 34 pg (25-35) Mean Corpuscular Hemoglobin Concent 34 g/dL (31-37) Red Cell Distribution Width 13.3 % (11.5-14.5) Platelet Count 203 x10^3/uL (140-400) Neutrophils (%) (Auto) 69 % (31-73) Lymphocytes (%) (Auto) 17 % (24-48) Monocytes (%) (Auto) 13 % (0-9) Eosinophils (%) (Auto) 1 % (0-3) Basophils (%) (Auto) 0 % (0-3) Neutrophils # (Auto) 4.1 x10^3uL (1.8-7.7) Lymphocytes # (Auto) 1.0 x10^3/uL (1.0-4.8) Monocytes # (Auto) 0.8 x10^3/uL (0.0-1.1) Eosinophils # (Auto) 0.1 x10^3/uL (0.0-0.7) Basophils # (Auto) 0.0 x10^3/uL (0.0-0.2) Sodium Level 141 mmol/L (136-145) Potassium Level 4.1 mmol/L (3.5-5.1) Chloride Level 105 mmol/L (98-107) Carbon Dioxide Level 25 mmol/L (21-32) Anion Gap 11 (6-14) Blood Urea Nitrogen 12 mg/dL (8-26) Creatinine 0.9 mg/dL (0.7-1.3) Estimated GFR (Cockcroft-Gault) 84.2 Glucose Level 79 mg/dL (70-99) Calcium Level 8.5 mg/dL (8.5-10.1) Medications Current Medications Ondansetron HCl (Zofran) 4 mg PRN Q6HRS PRN IV NAUSEA/VOMITING; Start at 11:30 Oxycodone HCl (Roxicodone) 5 mg PRN Q3HRS PRN PO BREAKTHROUGH PAIN; Start 06/08 at 11:30 Morphine Sulfate 2 mg PRN Q2HR PRN IV PAIN Last administered on 05/04/17 12: 21; Start 05/04/17 at 11:30 Ketorolac Tromethamine (Toradol) 15 mg PRN Q6HRS PRN IV PAIN Last administered on 05/04/17 12:21; Start 05/04/17 at 11:30; Stop 05/04/17 at 14:40; Status DC Acetaminophen (Tylenol) 650 mg PRN Q6HRS PRN PO Headaches, Temp > 101.5F; Start 05/04/17 at 11:30 Potassium Chloride/Sodium Chloride 1,000 ml @ 100 mls/hr Q10H IV Last administered on 05/06/17 06:29; Start 05/04/17 at 13:15 Enoxaparin Sodium (Lovenox 40mg Syringe) 40 mg Q24H SQ ; Start 05/04/17 at 16: 00 Pantoprazole Sodium (Protonix Vial) 40 mg DAILYAC IVP Last administered on 09:13; Start 05/04/17 at 15:00 Non-Formulary Medication 2 puff PRN Q6HRS PRN INH SHORTNESS OF BREATH; Start 05/04/17 at 18:45; Status UNV Non-Formulary Medication 2 inh BID IH ; Start 05/04/17 at 21:00; Status UNV Non-Formulary Medication 1 inh DAILY IH ; Start 05/05/17 at 09:00; Status UNV Non-Formulary Medication 4 puff DAILY .ROUTE ; Start 05/05/17 at 09:00; Status UNV Albuterol Sulfate (Ventolin Neb Soln) 2.5 mg PRN Q6HRS PRN NEB SHORTNESS OF BREATH; Start 05/04/17 at 18:45 Albuterol/ Ipratropium (Duoneb) 3 ml RTQID NEB Last administered on 05/06/17 12:58; Start 05/04/17 at 20:00 Budesonide (Pulmicort) 0.5 mg RTBID NEB Last administered on 05/06/17 08:18; Start 05/04/17 at 20:00 Iohexol (Omnipaque 300 Mg/ml) 300 ml 1X ONCE PO Last administered on 14:20; Start 05/06/17 at 14:00; Stop 05/06/17 at 14:01; Status DC Info (Do NOT chart on this entry -- for MONITORING) 1 each PRN DAILY PRN MC SEE COMMENTS; Start 05/06/17 at 14:00; Stop 05/08/17 at 13:59 Active Scripts Active Reported Multivitamins (Multivitamin) 1 Each Tablet 1 Tab PO DAILY Ibuprofen 800 Mg Tablet 800 Mg PO PRN TID PRN Vitamin B-12 (Cyanocobalamin (Vitamin B-12)) 1,000 Mcg Tablet 1 Tab PO DAILY Proair Hfa Inhaler (Albuterol Sulfate) 8.5 Gm Hfa.aer.ad 2 Puff INH PRN Q6HRS PRN Advair 500-50 Diskus (Fluticasone/Salmeterol) 1 Each Disk.w.dev 2 Inh IH BID Spiriva (Tiotropium [place]) 18 Mcg Cap.w.dev 1 Inh IH DAILY [testosterone] 4 Puff DAILY Zetia (Ezetimibe) 10 Mg Tablet 1 Tab PO DAILY Lisinopril 20 Mg Tablet 1 Tab PO DAILY Vitals/I & O Vital Sign - Last 24 Hours 05/05/17 05/05/17 05/05/17 05/05/17 15:00 16:02 19:15 19:56 Temp 98.1 98.1 98.1 98.1 Pulse 74 73 Resp 18 16 B/P (MAP) 116/56 (76) 138/72 (94) Pulse Ox 93 94 97 O2 Delivery Room Air Room Air Room Air Room Air 05/05/17 05/05/17 05/06/17 05/06/17 20:15 23:26 02:47 07:00 Temp 97.8 98.2 97.9 97.8 98.2 97.9 Pulse 81 77 66 Resp 16 16 16 B/P (MAP) 150/66 (94) 157/73 (101) 145/67 (93) Pulse Ox 95 94 95 O2 Delivery Room Air Nasal Cannula Room Air Room Air O2 Flow Rate 2.0 05/06/17 05/06/17 05/06/17 08:19 10:54 13:00 Temp 98.0 98.0 Pulse 70 Resp 16 B/P (MAP) 142/72 (95) Pulse Ox 95 97 O2 Delivery Room Air Room Air Room Air Intake and Output 05/05/17 05/05/17 05/06/17 15:00 23:00 07:00 Intake Total 0 ml 2146 ml Output Total 0 ml Balance 0 ml 2146 ml TREVRE JIMENEZ MD May 06, 2017 14:50
--- NOTE | 2017-05-06 14:57 | PDOC ---
PROGRESS NOTES Subjective Subjective HPI - Rectal cancer diagnosed in 2008. He has had a colonoscopy on 04/25/[address] Avtar Chaparro and it did not reveal any evidence of recurrence. CT scan of the abdomen and pelvis on 05/04/2017 revealed small-bowel obstruction and indeterminate lesions in the liver, which are 8 mm on the left, which are nonspecific. ROS - no abd pain Objective Objective Vital Signs Date Time Temp Pulse Resp B/P (MAP) Pulse Ox O2 Delivery O2 Flow Rate FiO2 05/06/17 13:00 Room Air 05/06/17 10:54 98.0 70 16 142/72 (95) 97 98.0 05/05/17 23:26 2.0 Intake and Output 05/06/17 07:00 Intake Total 2146 ml Output Total 0 ml Balance 2146 ml Intake Oral 0 ml IV Total 2146 ml Stool Total 0 ml # Voids 3 # Bowel Movements 2 Physical Exam Heart: Normal S1, Normal S2 General: Alert, Oriented X3 Lungs: Clear to auscultation Neuro: Normal speech Psych/Mental Status: Mental status NL Assessment Assessment IMPRESSION AND PLAN: 1. Rectal cancer diagnosed in 2008. He has had a colonoscopy on 04/25/[address] Avtar Chaparro and it did not reveal any evidence of recurrence. CT scan of the abdomen and pelvis on 05/04/2017 revealed small-bowel obstruction and indeterminate lesions in the liver, which are 8 mm on the left, which are nonspecific. Hence, there is no clinical evidence of recurrent disease. I will obtain a CEA level. I also recommended a followup CT scan in about 3 months to evaluate his liver lesions. If they get bigger, he will need a biopsy. He will follow up with Dr. Jose Brumfield for further management. Ordered CEA 2. Head and neck cancer in 2010, no clinical evidence of recurrence. 3. Small-bowel obstruction. Appreciate consultation by Surgery. Dr. Don has seen the patient and recommended bowel rest, IV fluids, and observation. A followup abdominal x-ray was performed on 05/05/2017, which revealed mildly dilated mid abdominal small bowel loops compatible with partial obstruction. Comment Review of Relevant I have reviewed the following items yanely (where applicable) has been applied. Labs Laboratory Tests Test 05/05/17 04:19 05/05/17 06:00 05/06/17 03:40 White Blood Count 6.9 x10^3/uL (4.0-11.0) 6.0 x10^3/uL (4.0-11.0) Red Blood Count 4.13 x10^6/uL (4.30-5.70) 3.75 x10^6/uL (4.30-5.70) Hemoglobin 14.1 g/dL (13.0-17.5) 12.8 g/dL (13.0-17.5) Hematocrit 41.7 % (39.0-53.0) 37.9 % (39.0-53.0) Mean Corpuscular Volume 101 fL (79-100) 101 fL (79-100) Mean Corpuscular Hemoglobin 34 pg (25-35) 34 pg (25-35) Mean Corpuscular Hemoglobin Concent 34 g/dL (31-37) 34 g/dL (31-37) Red Cell Distribution Width 13.2 % (11.5-14.5) 13.3 % (11.5-14.5) Platelet Count 212 x10^3/uL (140-400) 203 x10^3/uL (140-400) Neutrophils (%) (Auto) 78 % (31-73) 69 % (31-73) Lymphocytes (%) (Auto) 11 % (24-48) 17 % (24-48) Monocytes (%) (Auto) 10 % (0-9) 13 % (0-9) Eosinophils (%) (Auto) 1 % (0-3) 1 % (0-3) Basophils (%) (Auto) 0 % (0-3) 0 % (0-3) Neutrophils # (Auto) 5.4 x10^3uL (1.8-7.7) 4.1 x10^3uL (1.8-7.7) Lymphocytes # (Auto) 0.7 x10^3/uL (1.0-4.8) 1.0 x10^3/uL (1.0-4.8) Monocytes # (Auto) 0.7 x10^3/uL (0.0-1.1) 0.8 x10^3/uL (0.0-1.1) Eosinophils # (Auto) 0.1 x10^3/uL (0.0-0.7) 0.1 x10^3/uL (0.0-0.7) Basophils # (Auto) 0.0 x10^3/uL (0.0-0.2) 0.0 x10^3/uL (0.0-0.2) Prothrombin Time 13.9 SEC (11.7-14.0) Prothromb Time International Ratio 1.1 (0.8-1.1) Sodium Level 142 mmol/L (136-145) 141 mmol/L (136-145) Potassium Level 4.8 mmol/L (3.5-5.1) 4.1 mmol/L (3.5-5.1) Chloride Level 107 mmol/L (98-107) 105 mmol/L (98-107) Carbon Dioxide Level 26 mmol/L (21-32) 25 mmol/L (21-32) Anion Gap 9 (6-14) 11 (6-14) Blood Urea Nitrogen 16 mg/dL (8-26) 12 mg/dL (8-26) Creatinine 1.0 mg/dL (0.7-1.3) 0.9 mg/dL (0.7-1.3) Estimated GFR (Cockcroft-Gault) 74.5 84.2 BUN/Creatinine Ratio 16 (6-20) Glucose Level 79 mg/dL (70-99) 79 mg/dL (70-99) Calcium Level 8.7 mg/dL (8.5-10.1) 8.5 mg/dL (8.5-10.1) Total Bilirubin 0.8 mg/dL (0.2-1.0) Aspartate Amino Transf (AST/SGOT) 18 U/L (15-37) Alanine Aminotransferase (ALT/SGPT) 20 U/L (16-63) Alkaline Phosphatase 51 U/L (46-116) Total Protein 6.2 g/dL (6.4-8.2) Albumin 3.4 g/dL (3.4-5.0) Albumin/Globulin Ratio 1.2 (1.0-1.7) Laboratory Tests Test 05/06/17 03:40 White Blood Count 6.0 x10^3/uL (4.0-11.0) Red Blood Count 3.75 x10^6/uL (4.30-5.70) Hemoglobin 12.8 g/dL (13.0-17.5) Hematocrit 37.9 % (39.0-53.0) Mean Corpuscular Volume 101 fL (79-100) Mean Corpuscular Hemoglobin 34 pg (25-35) Mean Corpuscular Hemoglobin Concent 34 g/dL (31-37) Red Cell Distribution Width 13.3 % (11.5-14.5) Platelet Count 203 x10^3/uL (140-400) Neutrophils (%) (Auto) 69 % (31-73) Lymphocytes (%) (Auto) 17 % (24-48) Monocytes (%) (Auto) 13 % (0-9) Eosinophils (%) (Auto) 1 % (0-3) Basophils (%) (Auto) 0 % (0-3) Neutrophils # (Auto) 4.1 x10^3uL (1.8-7.7) Lymphocytes # (Auto) 1.0 x10^3/uL (1.0-4.8) Monocytes # (Auto) 0.8 x10^3/uL (0.0-1.1) Eosinophils # (Auto) 0.1 x10^3/uL (0.0-0.7) Basophils # (Auto) 0.0 x10^3/uL (0.0-0.2) Sodium Level 141 mmol/L (136-145) Potassium Level 4.1 mmol/L (3.5-5.1) Chloride Level 105 mmol/L (98-107) Carbon Dioxide Level 25 mmol/L (21-32) Anion Gap 11 (6-14) Blood Urea Nitrogen 12 mg/dL (8-26) Creatinine 0.9 mg/dL (0.7-1.3) Estimated GFR (Cockcroft-Gault) 84.2 Glucose Level 79 mg/dL (70-99) Calcium Level 8.5 mg/dL (8.5-10.1) Medications Current Medications Ondansetron HCl (Zofran) 4 mg PRN Q6HRS PRN IV NAUSEA/VOMITING; Start at 11:30 Oxycodone HCl (Roxicodone) 5 mg PRN Q3HRS PRN PO BREAKTHROUGH PAIN; Start 06/08 at 11:30 Morphine Sulfate 2 mg PRN Q2HR PRN IV PAIN Last administered on 05/04/17 12: 21; Start 05/04/17 at 11:30 Ketorolac Tromethamine (Toradol) 15 mg PRN Q6HRS PRN IV PAIN Last administered on 05/04/17 12:21; Start 05/04/17 at 11:30; Stop 05/04/17 at 14:40; Status DC Acetaminophen (Tylenol) 650 mg PRN Q6HRS PRN PO Headaches, Temp > 101.5F; Start 05/04/17 at 11:30 Potassium Chloride/Sodium Chloride 1,000 ml @ 100 mls/hr Q10H IV Last administered on 05/06/17 06:29; Start 05/04/17 at 13:15 Enoxaparin Sodium (Lovenox 40mg Syringe) 40 mg Q24H SQ ; Start 05/04/17 at 16: 00 Pantoprazole Sodium (Protonix Vial) 40 mg DAILYAC IVP Last administered on 09:13; Start 05/04/17 at 15:00 Non-Formulary Medication 2 puff PRN Q6HRS PRN INH SHORTNESS OF BREATH; Start 05/04/17 at 18:45; Status UNV Non-Formulary Medication 2 inh BID IH ; Start 05/04/17 at 21:00; Status UNV Non-Formulary Medication 1 inh DAILY IH ; Start 05/05/17 at 09:00; Status UNV Non-Formulary Medication 4 puff DAILY .ROUTE ; Start 05/05/17 at 09:00; Status UNV Albuterol Sulfate (Ventolin Neb Soln) 2.5 mg PRN Q6HRS PRN NEB SHORTNESS OF BREATH; Start 05/04/17 at 18:45 Albuterol/ Ipratropium (Duoneb) 3 ml RTQID NEB Last administered on 05/06/17 12:58; Start 05/04/17 at 20:00 Budesonide (Pulmicort) 0.5 mg RTBID NEB Last administered on 05/06/17 08:18; Start 05/04/17 at 20:00 Iohexol (Omnipaque 300 Mg/ml) 300 ml 1X ONCE PO Last administered on 14:20; Start 05/06/17 at 14:00; Stop 11/14/17 at 14:01; Status DC Info (Do NOT chart on this entry -- for MONITORING) 1 each PRN DAILY PRN MC SEE COMMENTS; Start 05/06/17 at 14:00; Stop 05/08/17 at 13:59 Active Scripts Active Reported Multivitamins (Multivitamin) 1 Each Tablet 1 Tab PO DAILY Ibuprofen 800 Mg Tablet 800 Mg PO PRN TID PRN Vitamin B-12 (Cyanocobalamin (Vitamin B-12)) 1,000 Mcg Tablet 1 Tab PO DAILY Proair Hfa Inhaler (Albuterol Sulfate) 8.5 Gm Hfa.aer.ad 2 Puff INH PRN Q6HRS PRN Advair 500-50 Diskus (Fluticasone/Salmeterol) 1 Each Disk.w.dev 2 Inh IH BID Spiriva (Tiotropium [place]) 18 Mcg Cap.w.dev 1 Inh IH DAILY [testosterone] 4 Puff DAILY Zetia (Ezetimibe) 10 Mg Tablet 1 Tab PO DAILY Lisinopril 20 Mg Tablet 1 Tab PO DAILY Vitals/I & O Vital Sign - Last 24 Hours 05/05/17 05/05/17 05/05/17 05/05/17 15:00 16:02 19:15 19:56 Temp 98.1 98.1 98.1 98.1 Pulse 74 73 Resp 18 16 B/P (MAP) 116/56 (76) 138/72 (94) Pulse Ox 93 94 97 O2 Delivery Room Air Room Air Room Air Room Air 05/05/17 05/05/17 05/06/17 05/06/17 20:15 23:26 02:47 07:00 Temp 97.8 98.2 97.9 97.8 98.2 97.9 Pulse 81 77 66 Resp 16 16 16 B/P (MAP) 150/66 (94) 157/73 (101) 145/67 (93) Pulse Ox 95 94 95 O2 Delivery Room Air Nasal Cannula Room Air Room Air O2 Flow Rate 2.0 05/06/17 05/06/17 05/06/17 08:19 10:54 13:00 Temp 98.0 98.0 Pulse 70 Resp 16 B/P (MAP) 142/72 (95) Pulse Ox 95 97 O2 Delivery Room Air Room Air Room Air Intake and Output 05/05/17 05/05/17 05/06/17 15:00 23:00 07:00 Intake Total 0 ml 2146 ml Output Total 0 ml Balance 0 ml 2146 ml YAZ BELL MD May 06, 2017 14:57
[2017-05-06] MEDS: ENOXAPARIN 40 MG/0.4 ML SYRINGE. SQ SCH (16:00)
--- NOTE | 2017-05-06 17:27 | RAD ---
Small bowel series, 05/06/2017: History: Small bowel obstruction Overhead and spot films were obtained following oral ingestion of nonionic contrast material. 1.2 minutes of fluoroscopy time was utilized. 6 fluoroscopic spot images were recorded. There is mild to moderate distention of proximal small bowel loops. No fold thickening is seen. At 90 minutes contrast has passed into nondilated loops of distal small bowel as well as the cecum. The exact point of transition is not clearly defined. The visualized loops of distal ileum are unremarkable. IMPRESSION: Partial distal small bowel obstruction.
[2017-05-06 19:00] VITALS: BP 144/66
[2017-05-06 23:00] VITALS: BP 138/60
[2017-05-07 03:00] VITALS: BP 140/65
[2017-05-07 04:51] LABS: BASO % 0 % (0-3); EOS % 3 % (0-3); HEMATOCRIT 39.3 % (39.0-53.0); HEMOGLOBIN 13.5 g/dL (13.0-17.5); LYMPH % 19 % (24-48); MEAN CORPUSCULAR HEMOGLOBIN 34 pg (25-35); MEAN CORPUSCULAR HGB CONC 34 g/dL (31-37); MEAN CORPUSCULAR VOLUME 100 fL (79-100); MONO % 15 % (0-9); NEUT % 64 % (31-73); PLATELET COUNT 208 x10^3/uL (140-400); RED BLOOD COUNT 3.93 x10^6/uL (4.30-5.70); RED CELL DISTRIBUTION WIDTH 13.2 % (11.5-14.5); WHITE BLOOD COUNT 5.4 x10^3/uL (4.0-11.0)
[2017-05-07 05:09] LABS: CALCIUM 8.9 mg/dL (8.5-10.1); CREATININE 0.9 mg/dL (0.7-1.3); GFR 84.2; POTASSIUM 4.6 mmol/L (3.5-5.1)
[2017-05-07] MEDS: PANTOPRAZOLE IV PUSH 40 MG VIAL. IVP SCH (06:32)
[2017-05-07 07:00] VITALS: BP 158/61
[2017-05-07] MEDS: IPRATRPIUM/ALBUTEROL 0.5/2.5MG 3 ML NEBU. NEB SCH ×2 (07:14→11:05)
[2017-05-07] MEDS: BUDESONIDE 0.5 MG/2 ML NEBU. NEB SCH (07:14)
--- NOTE | 2017-05-07 07:48 | PDOC ---
SURGICAL PROGRESS NOTE Subjective Doing well, had several BM's last night. Vital Signs Vital Signs Date Time Temp Pulse Resp B/P (MAP) Pulse Ox O2 Delivery O2 Flow Rate FiO2 05/07/17 07:14 97 Room Air 05/07/17 03:00 98.0 71 16 140/65 (90) 98.0 I&O Intake and Output 05/07/17 07:00 Intake Total 1294 ml Balance 1294 ml Intake Oral 0 ml IV Total 1294 ml # Voids 2 # Bowel Movements 7 PATIENT HAS A NOBLES: No General: Alert, Oriented X3, Cooperative, No acute distress Abdomen: Normal bowel sounds, Soft, No tenderness Labs Laboratory Tests Test 05/06/17 03:40 05/07/17 03:52 White Blood Count 6.0 x10^3/uL (4.0-11.0) 5.4 x10^3/uL (4.0-11.0) Red Blood Count 3.75 x10^6/uL (4.30-5.70) 3.93 x10^6/uL (4.30-5.70) Hemoglobin 12.8 g/dL (13.0-17.5) 13.5 g/dL (13.0-17.5) Hematocrit 37.9 % (39.0-53.0) 39.3 % (39.0-53.0) Mean Corpuscular Volume 101 fL (79-100) 100 fL (79-100) Mean Corpuscular Hemoglobin 34 pg (25-35) 34 pg (25-35) Mean Corpuscular Hemoglobin Concent 34 g/dL (31-37) 34 g/dL (31-37) Red Cell Distribution Width 13.3 % (11.5-14.5) 13.2 % (11.5-14.5) Platelet Count 203 x10^3/uL (140-400) 208 x10^3/uL (140-400) Neutrophils (%) (Auto) 69 % (31-73) 64 % (31-73) Lymphocytes (%) (Auto) 17 % (24-48) 19 % (24-48) Monocytes (%) (Auto) 13 % (0-9) 15 % (0-9) Eosinophils (%) (Auto) 1 % (0-3) 3 % (0-3) Basophils (%) (Auto) 0 % (0-3) 0 % (0-3) Neutrophils # (Auto) 4.1 x10^3uL (1.8-7.7) 3.4 x10^3uL (1.8-7.7) Lymphocytes # (Auto) 1.0 x10^3/uL (1.0-4.8) 1.0 x10^3/uL (1.0-4.8) Monocytes # (Auto) 0.8 x10^3/uL (0.0-1.1) 0.8 x10^3/uL (0.0-1.1) Eosinophils # (Auto) 0.1 x10^3/uL (0.0-0.7) 0.1 x10^3/uL (0.0-0.7) Basophils # (Auto) 0.0 x10^3/uL (0.0-0.2) 0.0 x10^3/uL (0.0-0.2) Sodium Level 141 mmol/L (136-145) 139 mmol/L (136-145) Potassium Level 4.1 mmol/L (3.5-5.1) 4.6 mmol/L (3.5-5.1) Chloride Level 105 mmol/L (98-107) 106 mmol/L (98-107) Carbon Dioxide Level 25 mmol/L (21-32) 25 mmol/L (21-32) Anion Gap 11 (6-14) 8 (6-14) Blood Urea Nitrogen 12 mg/dL (8-26) 14 mg/dL (8-26) Creatinine 0.9 mg/dL (0.7-1.3) 0.9 mg/dL (0.7-1.3) Estimated GFR (Cockcroft-Gault) 84.2 84.2 Glucose Level 79 mg/dL (70-99) 66 mg/dL (70-99) Calcium Level 8.5 mg/dL (8.5-10.1) 8.9 mg/dL (8.5-10.1) Laboratory Tests Test 05/07/17 03:52 White Blood Count 5.4 x10^3/uL (4.0-11.0) Red Blood Count 3.93 x10^6/uL (4.30-5.70) Hemoglobin 13.5 g/dL (13.0-17.5) Hematocrit 39.3 % (39.0-53.0) Mean Corpuscular Volume 100 fL (79-100) Mean Corpuscular Hemoglobin 34 pg (25-35) Mean Corpuscular Hemoglobin Concent 34 g/dL (31-37) Red Cell Distribution Width 13.2 % (11.5-14.5) Platelet Count 208 x10^3/uL (140-400) Neutrophils (%) (Auto) 64 % (31-73) Lymphocytes (%) (Auto) 19 % (24-48) Monocytes (%) (Auto) 15 % (0-9) Eosinophils (%) (Auto) 3 % (0-3) Basophils (%) (Auto) 0 % (0-3) Neutrophils # (Auto) 3.4 x10^3uL (1.8-7.7) Lymphocytes # (Auto) 1.0 x10^3/uL (1.0-4.8) Monocytes # (Auto) 0.8 x10^3/uL (0.0-1.1) Eosinophils # (Auto) 0.1 x10^3/uL (0.0-0.7) Basophils # (Auto) 0.0 x10^3/uL (0.0-0.2) Sodium Level 139 mmol/L (136-145) Potassium Level 4.6 mmol/L (3.5-5.1) Chloride Level 106 mmol/L (98-107) Carbon Dioxide Level 25 mmol/L (21-32) Anion Gap 8 (6-14) Blood Urea Nitrogen 14 mg/dL (8-26) Creatinine 0.9 mg/dL (0.7-1.3) Estimated GFR (Cockcroft-Gault) 84.2 Glucose Level 66 mg/dL (70-99) Calcium Level 8.9 mg/dL (8.5-10.1) I have reviewed the following SBFT contrast into the colon Assessment/Plan SBO resolved Adv diet if tolerated then ok to D/C Problems: BELEN CERDA MD May 07, 2017 07:48
[2017-05-07 11:00] VITALS: BP 119/52
[2017-05-07] MEDS: POTASSIUM CL 20MEQ-0.45% NACL 1,000 ML IV SCH (11:15)
--- NOTE | 2017-05-07 12:01 | PDOC ---
PROGRESS NOTES Subjective Subjective c/c - f/u of SBO ROS - pain resolved Objective Objective Vital Signs Date Time Temp Pulse Resp B/P (MAP) Pulse Ox O2 Delivery O2 Flow Rate FiO2 05/07/17 11:00 98.1 72 18 119/52 (74) 95 Room Air 98.1 05/05/17 23:26 2.0 Intake and Output 05/07/17 07:00 Intake Total 1294 ml Balance 1294 ml Intake Oral 0 ml IV Total 1294 ml # Voids 2 # Bowel Movements 7 Physical Exam Heart: Normal S1, Normal S2 General: Oriented X3 Lungs: Clear to auscultation Neuro: Normal speech Psych/Mental Status: Mental status NL Assessment Assessment IMPRESSION AND PLAN: 1. Rectal cancer diagnosed in 2008. He has had a colonoscopy on 04/25/[address] Avtar Chaparro and it did not reveal any evidence of recurrence. CT scan of the abdomen and pelvis on 05/04/2017 revealed small-bowel obstruction and indeterminate lesions in the liver, which are 8 mm on the left, which are nonspecific. Hence, there is no clinical evidence of recurrent disease. I will obtain a CEA level. I also recommended a followup CT scan in about 3 months to evaluate his liver lesions. If they get bigger, he will need a biopsy. He will follow up with Dr. Jose Brumfield for further management. Ordered CEA 2. Head and neck cancer in 2010, no clinical evidence of recurrence. 3. Small-bowel obstruction. Appreciate consultation by Surgery. Dr. Don has seen the patient and recommended bowel rest, IV fluids, and observation. A followup abdominal x-ray was performed on 05/05/2017, which revealed mildly dilated mid abdominal small bowel loops compatible with partial obstruction. Improving. Tolerating oral intake. Comment Review of Relevant I have reviewed the following items yanely (where applicable) has been applied. Labs Laboratory Tests Test 05/06/17 03:40 05/07/17 03:52 White Blood Count 6.0 x10^3/uL (4.0-11.0) 5.4 x10^3/uL (4.0-11.0) Red Blood Count 3.75 x10^6/uL (4.30-5.70) 3.93 x10^6/uL (4.30-5.70) Hemoglobin 12.8 g/dL (13.0-17.5) 13.5 g/dL (13.0-17.5) Hematocrit 37.9 % (39.0-53.0) 39.3 % (39.0-53.0) Mean Corpuscular Volume 101 fL (79-100) 100 fL (79-100) Mean Corpuscular Hemoglobin 34 pg (25-35) 34 pg (25-35) Mean Corpuscular Hemoglobin Concent 34 g/dL (31-37) 34 g/dL (31-37) Red Cell Distribution Width 13.3 % (11.5-14.5) 13.2 % (11.5-14.5) Platelet Count 203 x10^3/uL (140-400) 208 x10^3/uL (140-400) Neutrophils (%) (Auto) 69 % (31-73) 64 % (31-73) Lymphocytes (%) (Auto) 17 % (24-48) 19 % (24-48) Monocytes (%) (Auto) 13 % (0-9) 15 % (0-9) Eosinophils (%) (Auto) 1 % (0-3) 3 % (0-3) Basophils (%) (Auto) 0 % (0-3) 0 % (0-3) Neutrophils # (Auto) 4.1 x10^3uL (1.8-7.7) 3.4 x10^3uL (1.8-7.7) Lymphocytes # (Auto) 1.0 x10^3/uL (1.0-4.8) 1.0 x10^3/uL (1.0-4.8) Monocytes # (Auto) 0.8 x10^3/uL (0.0-1.1) 0.8 x10^3/uL (0.0-1.1) Eosinophils # (Auto) 0.1 x10^3/uL (0.0-0.7) 0.1 x10^3/uL (0.0-0.7) Basophils # (Auto) 0.0 x10^3/uL (0.0-0.2) 0.0 x10^3/uL (0.0-0.2) Sodium Level 141 mmol/L (136-145) 139 mmol/L (136-145) Potassium Level 4.1 mmol/L (3.5-5.1) 4.6 mmol/L (3.5-5.1) Chloride Level 105 mmol/L (98-107) 106 mmol/L (98-107) Carbon Dioxide Level 25 mmol/L (21-32) 25 mmol/L (21-32) Anion Gap 11 (6-14) 8 (6-14) Blood Urea Nitrogen 12 mg/dL (8-26) 14 mg/dL (8-26) Creatinine 0.9 mg/dL (0.7-1.3) 0.9 mg/dL (0.7-1.3) Estimated GFR (Cockcroft-Gault) 84.2 84.2 Glucose Level 79 mg/dL (70-99) 66 mg/dL (70-99) Calcium Level 8.5 mg/dL (8.5-10.1) 8.9 mg/dL (8.5-10.1) Laboratory Tests Test 05/07/17 03:52 White Blood Count 5.4 x10^3/uL (4.0-11.0) Red Blood Count 3.93 x10^6/uL (4.30-5.70) Hemoglobin 13.5 g/dL (13.0-17.5) Hematocrit 39.3 % (39.0-53.0) Mean Corpuscular Volume 100 fL (79-100) Mean Corpuscular Hemoglobin 34 pg (25-35) Mean Corpuscular Hemoglobin Concent 34 g/dL (31-37) Red Cell Distribution Width 13.2 % (11.5-14.5) Platelet Count 208 x10^3/uL (140-400) Neutrophils (%) (Auto) 64 % (31-73) Lymphocytes (%) (Auto) 19 % (24-48) Monocytes (%) (Auto) 15 % (0-9) Eosinophils (%) (Auto) 3 % (0-3) Basophils (%) (Auto) 0 % (0-3) Neutrophils # (Auto) 3.4 x10^3uL (1.8-7.7) Lymphocytes # (Auto) 1.0 x10^3/uL (1.0-4.8) Monocytes # (Auto) 0.8 x10^3/uL (0.0-1.1) Eosinophils # (Auto) 0.1 x10^3/uL (0.0-0.7) Basophils # (Auto) 0.0 x10^3/uL (0.0-0.2) Sodium Level 139 mmol/L (136-145) Potassium Level 4.6 mmol/L (3.5-5.1) Chloride Level 106 mmol/L (98-107) Carbon Dioxide Level 25 mmol/L (21-32) Anion Gap 8 (6-14) Blood Urea Nitrogen 14 mg/dL (8-26) Creatinine 0.9 mg/dL (0.7-1.3) Estimated GFR (Cockcroft-Gault) 84.2 Glucose Level 66 mg/dL (70-99) Calcium Level 8.9 mg/dL (8.5-10.1) Medications Current Medications Ondansetron HCl (Zofran) 4 mg PRN Q6HRS PRN IV NAUSEA/VOMITING; Start at 11:30 Oxycodone HCl (Roxicodone) 5 mg PRN Q3HRS PRN PO BREAKTHROUGH PAIN; Start 06/08 at 11:30 Morphine Sulfate 2 mg PRN Q2HR PRN IV PAIN Last administered on 05/04/17 12: 21; Start 05/04/17 at 11:30 Ketorolac Tromethamine (Toradol) 15 mg PRN Q6HRS PRN IV PAIN Last administered on 05/04/17 12:21; Start 05/04/17 at 11:30; Stop 05/04/17 at 14:40; Status DC Acetaminophen (Tylenol) 650 mg PRN Q6HRS PRN PO Headaches, Temp > 101.5F; Start 05/04/17 at 11:30 Potassium Chloride/Sodium Chloride 1,000 ml @ 100 mls/hr Q10H IV Last administered on 05/06/17 21:50; Start 05/04/17 at 13:15 Enoxaparin Sodium (Lovenox 40mg Syringe) 40 mg Q24H SQ ; Start 05/04/17 at 16: 00 Pantoprazole Sodium (Protonix Vial) 40 mg DAILYAC IVP Last administered on 06:32; Start 05/04/17 at 15:00 Non-Formulary Medication 2 puff PRN Q6HRS PRN INH SHORTNESS OF BREATH; Start 05/04/17 at 18:45; Status UNV Non-Formulary Medication 2 inh BID IH ; Start 05/04/17 at 21:00; Status UNV Non-Formulary Medication 1 inh DAILY IH ; Start 05/05/17 at 09:00; Status UNV Non-Formulary Medication 4 puff DAILY .ROUTE ; Start 05/05/17 at 09:00; Status UNV Albuterol Sulfate (Ventolin Neb Soln) 2.5 mg PRN Q6HRS PRN NEB SHORTNESS OF BREATH; Start 05/04/17 at 18:45 Albuterol/ Ipratropium (Duoneb) 3 ml RTQID NEB Last administered on 05/07/17 07:14; Start 05/04/17 at 20:00 Budesonide (Pulmicort) 0.5 mg RTBID NEB Last administered on 05/07/17 07:14; Start 05/04/17 at 20:00 Iohexol (Omnipaque 300 Mg/ml) 300 ml 1X ONCE PO Last administered on 14:20; Start 05/06/17 at 14:00; Stop 05/06/17 at 14:01; Status DC Info (Do NOT chart on this entry -- for MONITORING) 1 each PRN DAILY PRN MC SEE COMMENTS; Start 05/06/17 at 14:00; Stop 05/08/17 at 13:59 Active Scripts Active Reported Multivitamins (Multivitamin) 1 Each Tablet 1 Tab PO DAILY Vitamin B-12 (Cyanocobalamin (Vitamin B-12)) 1,000 Mcg Tablet 1 Tab PO DAILY Proair Hfa Inhaler (Albuterol Sulfate) 8.5 Gm Hfa.aer.ad 2 Puff INH PRN Q6HRS PRN Advair 500-50 Diskus (Fluticasone/Salmeterol) 1 Each Disk.w.dev 2 Inh IH BID Spiriva (Tiotropium [place]) 18 Mcg Cap.w.dev 1 Inh IH DAILY [testosterone] 4 Puff DAILY Zetia (Ezetimibe) 10 Mg Tablet 1 Tab PO DAILY Lisinopril 20 Mg Tablet 1 Tab PO DAILY Vitals/I & O Vital Sign - Last 24 Hours 05/06/17 05/06/17 05/06/17 05/06/17 13:00 16:36 19:00 19:24 Temp 98.0 98.0 Pulse 76 Resp 16 B/P (MAP) 144/66 (92) Pulse Ox 97 91 96 O2 Delivery Room Air Room Air Room Air Room Air 05/06/17 05/06/17 05/06/17 05/07/17 19:26 19:45 23:00 03:00 Temp 98.0 98.0 98.0 98.0 Pulse 73 71 Resp 16 16 B/P (MAP) 138/60 (86) 140/65 (90) Pulse Ox 96 93 93 O2 Delivery Room Air Room Air Room Air Room Air 05/07/17 05/07/17 05/07/17 07:00 07:14 11:00 Temp 97.7 98.1 97.7 98.1 Pulse 75 72 Resp 18 18 B/P (MAP) 158/61 (93) 119/52 (74) Pulse Ox 95 97 95 O2 Delivery Room Air Room Air Room Air Intake and Output 05/06/17 05/06/17 05/07/17 15:00 23:00 07:00 Intake Total 0 ml 1294 ml Balance 0 ml 1294 ml YAZ BELL MD May 07, 2017 12:01
--- NOTE | 2017-05-07 12:57 | PDOC3 ---
Discharge Summary [facility] Date of Admission: May 04, 2017 Discharge Date: May 07, 2017 Admitting Diagnosis 1. SBO with transition point 2. Hx colon CA stage 4? with 8 mmliver lesion, hemangiona vs met - hasbeen cancer free for yrs per [facility], recent colonoscopy neg 3. 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 HTN, dyslipidemia, smoker, occ etoh 5.ANemia of malignancy 6. LEukocytosis, likely reactibe 7,.Mild ot mod PCM Problems: CONSULTS onco dr. Chaparro Brief Hospital Course Mr. Moe is a 67 old with h/o Neck Cancer 2/2 HPV, post chemo and RT. h/o RECtum Ca post sx, recent colonoscopy ok with dr. Chaparro, came for abd pain. CT from [facility] showed SBO. AXR showed partial SBO. clinically pt is better daily, no N/V, abd pain gone now, has BM. advance diet as per sx. dc pt today home dc time 35min General: Alert, Oriented X3, Cooperative, No acute distress Heart: Regular rate, Normal S1, Normal S2 Lungs: Clear Abdomen: Soft, No tenderness Extremities: No clubbing, No cyanosis, No edema, Normal pulses, No tenderness/ swelling Skin: No rashes Problems: Disposition home CONDITION AT DISCHARGE: Improved Diet regular Scheduled Cyanocobalamin (Vitamin B-12) (Vitamin B-12), 1 TAB PO DAILY, (Reported) Ezetimibe (Zetia), 1 TAB PO DAILY, (Reported) Fluticasone/Salmeterol (Advair 500-50 Diskus), 2 INH IH BID, (Reported) Lisinopril (Lisinopril), 1 TAB PO DAILY, (Reported) Multivitamin (Multivitamins), 1 TAB PO DAILY, (Reported) Tiotropium [place] (Spiriva), 1 INH IH DAILY, (Reported) [testosterone], 4 PUFF DAILY, (Reported) Scheduled PRN Albuterol Sulfate (Proair Hfa Inhaler), 2 PUFF INH PRN Q6HRS PRN for SHORTNESS OF BREATH, (Reported) Discontinued Medications Ibuprofen (Ibuprofen), 800 MG PO PRN TID PRN for INFLAMMATION, (Reported) Follow Up pcp in 2 weeks TREVER JIMENEZ MD May 07, 2017 12:57
== END 2017-05-07 14:09 | disposition home or self-care (01) | DRG 389 ==
LOC: 4 NORTH 10:32
PROVIDERS: ADMIT Internal Medicine; ATTEND Internal Medicine
DX: K56.600 Partial intestinal obstruction, unspecified as to cause (principal); E44.0 Moderate protein-calorie malnutrition; D63.0 Anemia in neoplastic disease; D72.829 Elevated white blood cell count, unspecified; E78.5 Hyperlipidemia, unspecified; I10 Essential (primary) hypertension; F17.210 Nicotine dependence, cigarettes, uncomplicated; K44.9 Diaphragmatic hernia without obstruction or gangrene; K76.9 Liver disease, unspecified; N20.0 Calculus of kidney; Z85.048 Personal history of other malignant neoplasm of rectum, rectosigmoid junction, and anus; Z92.21 Personal history of antineoplastic chemotherapy
CPT/HCPCS: 36415; 74021; 74250; 80048; 80053; 82378; 85025; 85610; 94250; 94640; 94760; 99406; C9113; J1885; J2270; J7620; J7626; Q9967; 74020